=== PATIENT | female | born 1960 | race Caucasian/White ===

== ENCOUNTER → 2016-07-17 | Outpatient (CLI) | payer BC ==
--- NOTE | 2016-07-19 20:59 | RAD ---
EXAM DESCRIPTION: Ankle,Left 3 Views CLINICAL HISTORY: 56 years, Female, UNSPECIFIED FRACTURE COMPARISON: January 21, 2016 TECHNIQUE: AP/lateral/oblique of the left ankle FINDINGS: Prominent lateral soft tissue swelling over the malleolus observed. No fracture or bone lesion. Plantar heel spur stable. IMPRESSION: 1. Findings most consistent with lateral ankle sprain Electronically signed by: Teofilo Mathur MD 07/19/2016 9:00 PM CDT
--- NOTE | 2016-07-19 21:00 | RAD ---
EXAM DESCRIPTION: Tibia/Fibula,Left CLINICAL HISTORY: 56 years Female, UNSPECIFIED FRACTURE COMPARISON: January 21, 2016 FINDINGS: AP and lateral views left tib-fib show no fracture or bone lesion. IMPRESSION: Negative Electronically signed by: Teofilo Mathur MD 07/19/2016 9:01 PM CDT
--- NOTE | 2016-07-19 21:00 | RAD ---
EXAM DESCRIPTION: Elbow,Right 3 Views CLINICAL HISTORY: PAIN IN RIGHT ELBOW COMPARISON: None Available. TECHNIQUE: AP, Lateral, and Oblique FINDINGS: Three-view right elbow shows no fracture or dislocation. There is no bone lesion. There are no significant arthritic changes. There is no radiopaque foreign body. IMPRESSION: 1. 1. Negative Electronically signed by: Teofilo Mathur MD 07/19/2016 9:01 PM CDT
== END | disposition home or self-care (01) ==
LOC: RAD 09:39
PROVIDERS: ATTEND Orthopaedic Surgery
DX: M25.521 Pain in right elbow (principal)

== ENCOUNTER → 2016-10-10 | Outpatient (CLI) | payer OTHER ==
--- NOTE | 2016-10-10 15:20 | MRI ---
EXAM DESCRIPTION: MRI left ankle CLINICAL HISTORY: M25.572. Left ankle pain. Swelling and pain since an injury one year ago. Remote fracture tibia and fibula COMPARISON: None. TECHNIQUE: Multiplanar, multisequence MR images of the left ankle FINDINGS: Tibiofibular syndesmosis and ligaments are intact. Talofibular and calcaneofibular ligaments, deltoid ligament and calcaneonavicular ligaments are intact Mild insertional posterior tibial tendinosis. Flexor digitorum and flexor hallux tendons are normal. Small common peroneal tendon sheath effusion. Peroneus brevis tendinosis distal to the peroneal tubercle. Peroneus longus tendinosis between the tubercle and cuboid. Dorsiflexion tendons and Achilles tendon are intact Large well-corticated plantar calcaneal spur. Middle bundle plantar fascial thickening with mild surrounding edema. No osseous edema Small tibiotalar and posterior recess subtalar joint effusion. A few thin septations in the posterior recess. No fibrotic impingement lesion. Prominent posterior lateral process of the talus No osteochondral lesion of the ankle or hindfoot. IMPRESSION: Mild acute on chronic plantar fasciitis. Large well-corticated plantar calcaneal spur Distal peroneus brevis tendinosis. Short segment peroneus longus tendinosis between the tubercle and cuboid Posterior tibial tendinosis at the navicular insertion Electronically signed by: Jhony Tomlinson MD 10/10/2016 3:19 PM CDT
== END | disposition home or self-care (01) ==
LOC: MRI 11:22
PROVIDERS: ATTEND Orthopaedic Surgery
DX: M72.2 Plantar fascial fibromatosis (principal); M76.822 Posterior tibial tendinitis, left leg

== ENCOUNTER → 2016-10-30 | Outpatient (CLI) | payer OTHER ==
--- NOTE | 2016-10-30 16:02 | US ---
PROCEDURE: Venous,Lower Extremity LT CLINICAL HISTORY and INDICATION: Left leg swelling and pain COMPARISON: None. TECHNIQUE: Chance scale imaging with duplex interrogation of the left lower extremity venous system was performed and multiple static images were obtained. FINDINGS: Utilizing compression and augmentation, there is no deep venous thrombus in the common femoral, superficial femoral or popliteal veins. The posterior tibial and deep peroneal veins are patent and compressible. . The greater saphenous vein at the saphenofemoral junction is patent and compressible. There is no visualization of any subcutaneous fluid collections. There is no visualization of any fluid collections in the left popliteal fossa. There is no evidence of reactive or pathological lymphadenopathy in the evaluated left lower extremity. IMPRESSION: No deep venous thrombosis of the left lower extremity. Location of Interpretation: [id number] Electronically signed by: Mathew Harry MD 10/30/2016 4:00 PM CDT Workstation: [id number]
== END | disposition home or self-care (01) ==
LOC: US 09:45
PROVIDERS: ATTEND Orthopaedic Surgery
DX: R22.42 Localized swelling, mass and lump, left lower limb (principal)

== ENCOUNTER → 2016-11-14 | Outpatient (CLI) | payer BC | END | disposition home or self-care (01) | LOC: GMAL 10:08 | PROVIDERS: ATTEND Family Medicine | DX: D51.3 Other dietary vitamin B12 deficiency anemia (principal); R53.82 Chronic fatigue, unspecified; E55.9 Vitamin D deficiency, unspecified ==

== ENCOUNTER → 2018-03-17 | Outpatient (CLI) | payer BC | LOC: GMAL 14:41 | PROVIDERS: ATTEND Family Medicine | DX: Z00.00 Encounter for general adult medical examination without abnormal findings (principal) ==

== ENCOUNTER → 2019-07-01 | Outpatient (CLI) | payer BC | LOC: GMAL 11:16 | PROVIDERS: ATTEND Family Medicine | DX: Z00.01 Encounter for general adult medical examination with abnormal findings (principal) ==